=== PATIENT | female | born 1965 | race Two or more races ===

== ENCOUNTER 2017-10-20 06:34 | Emergency (ER) | payer OTHER, SELFPAY ==
[~2017-10-20] VITALS: Ht 165.1 cm; Wt 82.3 kg
[2017-10-20] MEDS ORDERED: HYDROcodone/APAP 5/325 TABLET PO ONE (09:00)
[2017-10-20] MEDS ORDERED: HYDROcodone/APAP 5/325 TABLET ONE (09:10)
[2017-10-20 09:12] LABS: MEAN CORPUSCULAR HEMOGLOBIN 27.1 pg (27.0-34.8); MEAN CORPUSCULAR HGB CONC 33.2 g/dL (32.4-35.8); MEAN CORPUSCULAR VOLUME 81.6 fL (80-100); MEAN PLATELET VOLUME 9.2 fL (7.4-10.4); PLATELET COUNT 141 x10^3/uL (130-400); RED BLOOD COUNT 4.83 x10^6/uL (3.82-5.3); RED CELL DISTRIBUTION WIDTH 16.1 % (9.6-15.2)
[2017-10-20 09:14] VITALS: BP 165/99
[2017-10-20 09:17] LABS: ALBUMIN 3.7 g/dL (3.4-5.0); ANION GAP 7 mmol/L (5-15); CALCIUM 8.4 mg/dL (8.5-10.1); CHLORIDE 103 mmol/L (98-107); CREATININE 0.73 mg/dL (0.55-1.02)
[2017-10-20 09:22] LABS: MD YES
[2017-10-20 09:27] LABS: ANISOCYTOSIS 1+; BAND#(MANUAL) 0.16 x10^3/uL; BANDS%(MANUAL) 4 % (0-7); EOS#(MANUAL) 0.16 x10^3/uL (0.0-0.4); EOS% (MANUAL) 4 % (1-7); LYMPH#(MANUAL) 0.55 x10^3/uL (1-3.4); LYMPHS% (MANUAL) 14 % (22-44); MONOS#(MANUAL) 0.35 x10^3/uL (0.3-2.7); MONOS% (MANUAL) 9 % (2-9); SEG#(MANUAL) 2.69 x10^3/uL (1.8-6.8); SEGS% (MANUAL) 69 % (42-75)
[2017-10-20 09:28] LABS: <PLATELET ESTIMATE> ADEQUATE; <PLT MORPHOLOGY> NORMAL PLT MORPH
== END 2017-10-20 10:40 | disposition home or self-care (01) ==
LOC: ED 10:34
DX: B34.9 Viral infection, unspecified (principal)
CPT/HCPCS: 36415; 71045; 80048; 82040; 83605; 85025; 87040; 93005; 99285